=== PATIENT | male | born 1995 | race African-American/Black ===

== ENCOUNTER 2018-12-05 21:52 | Emergency (ER) | payer OTHER ==
[2018-12-05] MEDS: Tetan/Diph/Pertus SYR(Tdap)* 0.5 ML SYR(BOOSTRIX) use SYR IM ONE ×2 (22:41→23:37)
--- NOTE | 2018-12-05 23:47 | ED ---
Laceration/Wound HPI - HPI Summary HPI Summary: Patient complains of self cutting to right AC. Denies SI, HI. Bleeding controlled. Denies any other pain, injury or symptoms. Tetanus status unknown. - History of Current Complaint Stated Complaint: ARM LAC PER EMS Time Seen by Provider: 12/05/18 22:16 Hx Obtained From: Patient Mechanism of Injury: Sharp/Blunt Trauma Aggravating: Movement Alleviating: Compression Onset Severity: Mild Current Severity: None Pain Intensity: 0 Pain Scale Used: 0-10 Numeric - Allergy/Home Medications Allergies/Adverse Reactions: Allergies Allergy/AdvReac Type Severity Reaction Status Date / Time fish Allergy Rash And Uncoded 12/05/18 22:03 Itching Home Medications: Home Medications Albuterol HFA INHALER* 1 puff INH BID 12/05/18 [History Confirmed 12/05/18] Remeron TAB* 45 mg PO DAILY 12/05/18 [History Confirmed 12/05/18] PMH/Surg Hx/FS Hx/Imm Hx Endocrine/Hematology History: Denies: Hx Anticoagulant Therapy Cardiovascular History: Denies: Hx Pacemaker/ICD History: Denies: Hx Dialysis Sensory History: Denies: Hx Eye Prosthesis Opthamlomology History: Denies: Hx Legally Blind EENT History: Denies: Hx Deafness Neurological History: Denies: Hx Dementia Infectious Disease History: No Infectious Disease History: Denies: Traveled Outside the [place] in Last 30 Days - Family History Known Family History: Positive: Non-Contributory - Social History Alcohol Use: None Hx Substance Use: No Hx Tobacco Use: Yes Review of Systems Constitutional: Negative Eyes: Negative ENT: Negative Cardiovascular: Negative Respiratory: Negative Gastrointestinal: Negative Genitourinary: Negative Musculoskeletal: Negative Skin: Other Neurological: Negative Psychological: Normal All Other Systems Reviewed And Are Negative: Yes Physical Exam - Summary Physical Exam Summary: Laceration across right AC 5 cm x 1 cm. Bleeding controlled. PMS intact distally. Triage Information Reviewed: Yes Vital Signs On Initial Exam: Initial Vitals Temp Pulse Resp BP Pulse Ox 97.6 F 78 16 128/89 99 12/05/18 21:54 12/05/18 21:54 12/05/18 21:54 12/05/18 21:54 12/05/18 21:54 Vital Signs Reviewed: Yes Appearance: Positive: Well-Appearing Skin: Positive: Warm Head/Face: Positive: Normal Head/Face Inspection Eyes: Positive: Normal Neck: Positive: Supple Respiratory/Lung Sounds: Positive: Clear to Auscultation Cardiovascular: Positive: Normal Abdomen Description: Positive: Nontender Musculoskeletal: Positive: Normal Neurological: Positive: Normal Psychiatric: Positive: Normal AVPU Assessment: Alert - Ana Coma Scale Best Eye Response: 4 - Spontaneous Best Motor Response: 6 - Obeys Commands Best Verbal Response: 5 - Oriented Coma Scale Total: 15 Procedures - Laceration/Wound Repair 1 Location: upper extremity - rt AC Description: Linear Anesthesia: Local, 1.0% Length, Depth and Shape: 5cm x 1cm Betadine Prep?: No - Chlorhexidine Irrigated w/ Saline (ccs): 400 Laceration/Wound Explored: clean Debridement: minimal Suture Type: Prolene Number of Sutures: 8 - 4.0 Layer Closure?: No Sterile Dressing Applied?: No Diagnostics - Vital Signs Vital Signs Temp Pulse Resp BP Pulse Ox 12/05/18 21:54 97.6 F 78 16 128/89 99 - Laboratory Lab Statement: Any lab studies that have been ordered have been reviewed, and results considered in the medical decision making process. Laceration Repair Course/Dx - Course Course Of Treatment: Patient complains of self cutting to right AC. Denies SI, HI. Bleeding controlled. Denies any other pain, injury or symptoms. Tetanus status unknown. Vital signs within normal limits. Wound cleaned and sutured. Rx for Bactrim. Tetanus booster administered. - Clinical Impression Provider Diagnoses: Laceration Discharge ED - Sign-Out/Discharge Documenting (check all that apply): Patient Departure Patient Received Moderate/Deep Sedation with Procedure: No - Discharge Plan Condition: Stable Disposition: HOME Patient Education Materials: Care For Your Stitches (ED), Laceration (ED) Referrals: Karoline BALLARD,Yimi Dueñas [Primary Care Provider] - Additional Instructions: Sutures out in 10 days. Take antibiotics as directed. Starting tomorrow he may wash wound with warm running water and soap like a shower. Do not submerge wound underwater. Return to the ED for any new or worsening symptoms. - Billing Disposition and Condition Condition: STABLE Disposition: Home
[2018-12-05] MEDS ORDERED: Sulfamethox/Trimethoprim DS 800/160* TAB PO ONE (23:48)
[2018-12-06 00:15] VITALS: BP 127/80
== END 2018-12-06 00:14 | disposition home or self-care (01) ==
LOC: ED 21:52
DX: S41.111A Laceration without foreign body of right upper arm, initial encounter (principal); X78.9XXA Intentional self-harm by unspecified sharp object, initial encounter; Y92.9 Unspecified place or not applicable; Z79.899 Other long term (current) drug therapy
CPT/HCPCS: 12002; 90471; 90715; 99282; A9270-GY

== ENCOUNTER 2018-12-07 21:58 | Emergency (ER) | payer OTHER ==
--- NOTE | 2018-12-07 21:59 | ED ---
Laceration/Wound HPI - HPI Summary HPI Summary: 23 yo male presents to [facility] ED via EMS after having pulled out his sutures that were placed 2 days ago to right AC. The initial injury was done by self cutting. He had 8 sutures placed and was started on bactrim prophylactically. Today he tells me that he pulled out his sutures. When asked why he did this he says "i dont know". Report with him states this happened x2 today. Pt denies pain. He denies SI/HI or doing this out of wanting to harm himself. - History of Current Complaint Stated Complaint: LAC PER EMS Time Seen by Provider: 12/07/18 21:59 Hx Obtained From: Patient Onset/Duration: Sudden Onset - Allergy/Home Medications Allergies/Adverse Reactions: Allergies Allergy/AdvReac Type Severity Reaction Status Date / Time fish Allergy Rash And Uncoded 12/05/18 22:03 Itching PMH/Surg Hx/FS Hx/Imm Hx Endocrine/Hematology History: Denies: Hx Anticoagulant Therapy Cardiovascular History: Denies: Hx Pacemaker/ICD History: Denies: Hx Dialysis Sensory History: Denies: Hx Eye Prosthesis, Hx Legally Blind, Hx Deafness Opthamlomology History: Denies: Hx Eye Prosthesis, Hx Legally Blind Neurological History: Denies: Hx Dementia - Family History Known Family History: Positive: Non-Contributory - Social History Alcohol Use: None Hx Substance Use: No Substance Use Type: Reports: None Hx Tobacco Use: Yes Smoking Status (MU): Former Smoker Review of Systems Constitutional: Negative Cardiovascular: Negative Respiratory: Negative Musculoskeletal: Negative Skin: Other - Right AC laceration Neurological: Negative Psychological: Normal All Other Systems Reviewed And Are Negative: No Physical Exam - Summary Physical Exam Summary: GENERAL: NAD. WDWN. No pain distress. SKIN: RIGHT AC: 5.0cm Linear laceration with lateral and medial ends well approximated and single sutures in place at each end. Central aspect with sutures removed and 5mm width. No active bleeding. CHEST: No accessory muscle use. Breathing comfortably and in no distress. CV: Pulses intact. Cap refill <2seconds NEURO: Alert. PSYCH: Age appropriate behavior. Triage Information Reviewed: Yes Vital Signs On Initial Exam: Vital Signs: Temp Pulse Resp BP Pulse Ox 97.9 F 77 18 101/65 98 12/07/18 22:01 12/07/18 22:01 12/07/18 22:01 12/07/18 22:01 12/07/18 22:01 Vital Signs Reviewed: Yes Procedures - Laceration/Wound Repair 1 Location: upper extremity Description: Linear - 5.0 Laceration/Wound Explored: clean Closure: Skin Adhesive Sterile Dressing Applied?: Yes Laceration Repair Course/Dx - Course Course Of Treatment: I discussed with the pt that I recommend he have more sutures placed today to approximate the wound, but he refused and does not want sutures. I made him aware of the risks of not placing sutures such as delayed wound healing, wound infection, scar formation, or continued bleeding/ complications - he voiced understanding and continued to refuse sutures and does not consent for a procedure. He is pleasant, non-combative, and AAOx3. I believe he has the mental capcity and is clinically sober to make his own decisions. Given this, dermabond is a non-invasive method that does not require procedural consent. Dermabond was applied and the wound was manually approximated. Dressed with telfa and coban. Advised to continue taking anbx. - Clinical Impression Provider Diagnoses: Laceration of right upper arm Discharge ED - Sign-Out/Discharge Documenting (check all that apply): Patient Departure Patient Received Moderate/Deep Sedation with Procedure: No - Discharge Plan Condition: Stable Disposition: HOME Patient Education Materials: Laceration (ED), Skin Adhesive Care (ED) Referrals: Karoline BALLARD,Yimi Dueñas [Primary Care Provider] - Additional Instructions: If you develop a fever, shortness of breath, chest pain, new or worsening symptoms - please call your PCP or go to the ED immediately. Please allow the wound on your right arm to heal - Billing Disposition and Condition Condition: STABLE Disposition: Home
[2018-12-07 23:47] VITALS: BP 96/65
== END 2018-12-07 23:50 | disposition home or self-care (01) ==
LOC: ED 21:58
DX: S41.111A Laceration without foreign body of right upper arm, initial encounter (principal); X78.9XXA Intentional self-harm by unspecified sharp object, initial encounter; Y92.9 Unspecified place or not applicable; Z79.899 Other long term (current) drug therapy
CPT/HCPCS: 12001; 99282